=== PATIENT | male | born 1960 | race Caucasian/White ===

== ENCOUNTER 2019-04-29 12:54 | Outpatient (CLI) | payer OTHER, SELFPAY ==
--- NOTE | 2019-04-29 13:05 | US_ITS ---
WS: [id number] Bilateral renal ultrasound, 04/29/2019 Clinical Data: RENAL MASS Comparison: None. Findings: The right kidney measures 13.0 cm x 6.7 cm x 7.0 cm and the left kidney is 13.4 cm x 7.2 cm x 6.7 cm. There are no cysts, masses or hydronephrosis. The renal cortical margin is normal. No renal calculi are seen. The abdominal aorta and inferior vena cava show no vascular abnormalities. The bladder was scanned and was not remarkable. US/US renal BI* [id number] Impression: Negative bilateral renal ultrasound.
== END 2019-04-29 12:55 | disposition home or self-care (01) ==
PROVIDERS: Family Provider Nurse Practitioner; PCP Nurse Practitioner; Visit Provider Urology
DX: N28.89 Other specified disorders of kidney and ureter (principal)
CPT/HCPCS: 76770; 81001

== ENCOUNTER → 2020-03-31 08:35 | Outpatient (BNVA) | payer OTHER, SELFPAY | PROVIDERS: Family Provider Nurse Practitioner; PCP Nurse Practitioner; Referring Provider Family Medicine; Visit Provider Family Medicine | DX: Z13.6 Encounter for screening for cardiovascular disorders (principal) | CPT/HCPCS: 80061; 82947; 83036 ==

== ENCOUNTER 2020-07-30 14:11 | Outpatient (CLI) | payer OTHER, SELFPAY ==
--- NOTE | 2020-07-30 14:15 | CT_ITS ---
WS: [id number] CT SINUSES TECHNIQUE: Noncontrast CT of the paranasal sinuses with coronal and sagittal reformatted images. CLINICAL INFORMATION: SINUS PRESSURE/NASAL CONGESTION COMPARISON: None. DLP: All CT scans at [facility] use at least one of these dose optimization techniques: automat ed exposure control; mA and/or kV adjustment per patient size (includes targeted exams where dose is matched to clinical indication); or iterative reconstruction. FINDINGS: Minimal right to left nasal septal deviation measuring 2 mm. Paranasal sinuses are well aerated. Maxi llary sinuses are well aerated. Mild narrowing of the ostiomeatal units which remain patent with mild mucosal thickening. Small right shayy bullosa. Small bilateral Eugene cells contributing to infundi bular stenosis. Frontal sinuses are well aerated. Mild mucosal thickening ethmoid air cells. Sphenoid sinuses are well aerated. Mild mucosal thickening along the sphenoid sinus ostia. Mild mucosal thick ening in the left pterygoid recess. Pneumatization of the left pterygoid plates. Mastoid air cells are well aerated. Dental artifact degrades images at the tongue base. Normal visual ized posterior nasopharynx. Normal visualized parapharyngeal fat. CT/CT sinus wo con* [id number] IMPRESSION: 1. Mild right to left nasal deviation measuring 2 mm. 2. Paranasal sinuses are well aerated. 3. Mild narrowing of the infundibulum bilaterally with mild mucosal thickening and small bilateral Eugene cells. 4. Small right shayy bullosa. 5. Pneumatization of the left pterygoid plates with mild mucosal thickening. 6. Mild narrowing of the sphenoid sinus ostia with mucosal thickening. 7. Mild mucosal thickening ethmoid air cells. Frontal ethmoidal recesses are p atent. 8. Mastoid air cells are well aerated.
== END 2020-07-30 14:12 | disposition home or self-care (01) ==
LOC: RADWPI 14:14
PROVIDERS: PCP Nurse Practitioner; Visit Provider Otolaryngology
DX: J34.89 Other specified disorders of nose and nasal sinuses (principal); J34.2 Deviated nasal septum
CPT/HCPCS: 70486

== ENCOUNTER 2020-10-26 12:02 | Outpatient (CLI) | payer OTHER, SELFPAY ==
--- NOTE | 2020-10-26 12:00 | US_ITS ---
WS: [id number] ULTRASOUND RENAL TECHNIQUE: Ultrasound examination of both kidneys. CLINICAL INFORMATION: RENAL MASS COMPARISON: None. FINDINGS: History of left renal mass with cryoablation. RIGHT: Right kidney is normal in size and appearance. Echogenicity: Normal. Cortical thickness: 2.0 cm; Normal. Hydronephrosis: None. Perinephric fluid: None. Right kidney measures: 13.4 cm x 5.7 cm x 8.4 cm. LEFT: Left kidney is normal in size and appearance. Echogenicity: Normal. Cortical thickness: 2.0 cm; Normal. Hydronephrosis: None. Perinephric fluid: None. Left kidney measures: 13.5 cm x 5.7 cm x 7.4 cm. Normal visualized aorta. Normal bladder US/US renal BI* [id number] IMPRESSION: 1. Normal renal ultrasound. 2. No visualized left renal mass.
== END 2020-10-26 12:03 | disposition home or self-care (01) ==
LOC: US 12:05
PROVIDERS: PCP Nurse Practitioner Family; Visit Provider Urology
DX: N28.89 Other specified disorders of kidney and ureter (principal)
CPT/HCPCS: 76770; 81003

== ENCOUNTER → 2020-12-09 13:27 | Outpatient (BNVA) | payer OTHER, SELFPAY | PROVIDERS: PCP Nurse Practitioner Family; Visit Provider Nurse Practitioner Family | DX: N40.1 Benign prostatic hyperplasia with lower urinary tract symptoms (principal) | CPT/HCPCS: 81003 ==

== ENCOUNTER → 2020-12-24 08:19 | Outpatient (BNVA) | payer OTHER, SELFPAY | PROVIDERS: PCP Nurse Practitioner Family; Visit Provider Urology | DX: N40.1 Benign prostatic hyperplasia with lower urinary tract symptoms (principal) | CPT/HCPCS: 81003 ==

== ENCOUNTER → 2021-02-03 11:00 | Outpatient (BNVA) | payer OTHER, SELFPAY | PROVIDERS: PCP Nurse Practitioner Family; Visit Provider Urology | DX: N40.1 Benign prostatic hyperplasia with lower urinary tract symptoms (principal); N39.41 Urge incontinence | CPT/HCPCS: 81003 ==

== ENCOUNTER → 2021-04-19 10:05 | Outpatient (BNVA) | payer SELFPAY | PROVIDERS: PCP Nurse Practitioner Family; Referring Provider Dermatology; Visit Provider Dermatology | DX: Z01.89 Encounter for other specified special examinations (principal) ==

== ENCOUNTER → 2021-04-25 15:25 | Outpatient (BNVA) | payer SELFPAY | PROVIDERS: PCP Nurse Practitioner Family; Visit Provider Family Medicine | DX: Z01.89 Encounter for other specified special examinations (principal) ==

== ENCOUNTER → 2021-05-31 08:08 | Outpatient (BNVA) | payer OTHER, SELFPAY | PROVIDERS: PCP Nurse Practitioner Family; Visit Provider Urology | DX: N40.1 Benign prostatic hyperplasia with lower urinary tract symptoms (principal); N52.9 Male erectile dysfunction, unspecified; N39.41 Urge incontinence | CPT/HCPCS: 81003 ==

== ENCOUNTER → 2021-06-10 14:35 | Outpatient (BNVA) | payer OTHER, SELFPAY | PROVIDERS: PCP Nurse Practitioner Family; Visit Provider Emergency Medicine | DX: M25.541 Pain in joints of right hand (principal); M19.041 Primary osteoarthritis, right hand | CPT/HCPCS: 73130 ==

== ENCOUNTER → 2021-07-13 08:52 | Outpatient (BNVA) | payer OTHER, SELFPAY | PROVIDERS: PCP Nurse Practitioner Family; Visit Provider Nurse Practitioner Family | DX: M10.9 Gout, unspecified (principal) | CPT/HCPCS: 84550 ==

== ENCOUNTER → 2022-04-18 08:29 | Outpatient (BNVA) | payer OTHER, SELFPAY | PROVIDERS: Visit Provider Dermatology | DX: Z01.89 Encounter for other specified special examinations (principal) | CPT/HCPCS: 84550 ==

== ENCOUNTER → 2022-12-18 16:17 | Outpatient (BNVA) | payer OTHER, SELFPAY | PROVIDERS: PCP Nurse Practitioner Family; Visit Provider Nurse Practitioner Family | DX: L98.9 Disorder of the skin and subcutaneous tissue, unspecified (principal) | CPT/HCPCS: 88304 ==

== ENCOUNTER → 2023-04-17 08:36 | Outpatient (BNVA) | payer SELFPAY | PROVIDERS: PCP Nurse Practitioner; Visit Provider Dermatology | DX: M10.9 Gout, unspecified (principal) | CPT/HCPCS: 84550 ==

== ENCOUNTER → 2024-03-31 14:30 | Outpatient (BNVA) | payer OTHER, SELFPAY | PROVIDERS: PCP Nurse Practitioner; Visit Provider Nurse Practitioner | DX: M79.641 Pain in right hand (principal); M79.642 Pain in left hand; E11.9 Type 2 diabetes mellitus without complications; Z13.6 Encounter for screening for cardiovascular disorders | CPT/HCPCS: 73130; 80061; 82947; 83036; 83721 ==

== ENCOUNTER → 2024-06-17 11:37 | Outpatient (BNVA) | payer OTHER, SELFPAY | PROVIDERS: PCP Nurse Practitioner; Visit Provider Nurse Practitioner | DX: R73.09 Other abnormal glucose (principal) | CPT/HCPCS: 82962 ==

== ENCOUNTER → 2024-09-04 10:34 | Outpatient (BNVA) | payer OTHER, SELFPAY | PROVIDERS: PCP Nurse Practitioner; Visit Provider Nurse Practitioner | DX: E11.9 Type 2 diabetes mellitus without complications (principal) | CPT/HCPCS: 83036 ==

== ENCOUNTER → 2024-11-04 13:53 | Outpatient (BNVA) | payer OTHER, SELFPAY | PROVIDERS: PCP Nurse Practitioner; Visit Provider Student in an Organized Health Care Education/Training Program | DX: M25.511 Pain in right shoulder (principal); M75.41 Impingement syndrome of right shoulder | CPT/HCPCS: 73030 ==

== ENCOUNTER 2024-11-20 11:32 | Outpatient (RCR) | payer OTHER, SELFPAY | END 2024-12-05 23:59 | disposition home or self-care (01) | LOC: SPT 11:32 | PROVIDERS: Visit Provider Student in an Organized Health Care Education/Training Program | DX: M25.511 Pain in right shoulder (principal) | CPT/HCPCS: 97110; 97161 ==

== ENCOUNTER 2024-12-06 05:00 | Outpatient (RCR) | payer OTHER, SELFPAY | END 2025-01-04 23:59 | disposition home or self-care (01) | LOC: SPT 05:00 | PROVIDERS: Visit Provider Student in an Organized Health Care Education/Training Program | DX: M25.511 Pain in right shoulder (principal) | CPT/HCPCS: 97110 ==

== ENCOUNTER 2025-01-05 05:00 | Outpatient (RCR) | payer OTHER, SELFPAY | END 2025-01-21 09:58 | disposition home or self-care (01) | LOC: SPT 05:00 | PROVIDERS: Visit Provider Student in an Organized Health Care Education/Training Program | DX: M25.511 Pain in right shoulder (principal) | CPT/HCPCS: 97110 ==